=== PATIENT | female | born 1945 | race Caucasian/White ===

== ENCOUNTER 2017-04-24 09:24 | Emergency (ER) | payer MEDICARE ==
[~2017-04-24] VITALS: Ht 149.9 cm; Wt 50.0 kg
[2017-04-24] MEDS ORDERED: ASPI81TA39 PO (09:39)
[2017-04-24] MEDS ORDERED: ACETAMINOPHEN 325 MG TABLET PO ONE (10:30)
[2017-04-24] MEDS ORDERED: TraMADol HCL 50 MG TABLET PO ONE (10:30)
[2017-04-24] MEDS ORDERED: MORPHINE SULFATE 4 MG/ML SYRINGE IM ONE (11:30)
[2017-04-24] MEDS ORDERED: ONDANSETRON HCL 4 MG/2 ML VIAL IM ONE (11:30)
[2017-04-24 12:08] VITALS: BP 180/83
== END 2017-04-24 12:31 | disposition home or self-care (01) ==
LOC: EMS 09:26
DX: R51 Headache (principal); M47.022 Vertebral artery compression syndromes, cervical region; I10 Essential (primary) hypertension; Z79.82 Long term (current) use of aspirin
CPT/HCPCS: 70450; 72125; 99284